=== PATIENT | female | born 1955 | race Caucasian/White ===

== ENCOUNTER 2019-03-29 09:38 | Day surgery (SDC) | payer OTHER ==
[2019-03-29] MEDS ORDERED: PROPOFOL 40 ML (11:22)
[2019-03-29] MEDS ORDERED: LIDOCAINE 100 MG SYRINGE (11:22)
== END 2019-03-29 14:17 | disposition home or self-care (01) ==
LOC: GIL 09:38
DX: Z12.11 Encounter for screening for malignant neoplasm of colon (principal); D12.5 Benign neoplasm of sigmoid colon; D12.4 Benign neoplasm of descending colon; K29.00 Acute gastritis without bleeding; K31.9 Disease of stomach and duodenum, unspecified; E78.5 Hyperlipidemia, unspecified; E11.9 Type 2 diabetes mellitus without complications; E03.9 Hypothyroidism, unspecified; Z79.84 Long term (current) use of oral hypoglycemic drugs
CPT/HCPCS: 43239; 82962; 88305; 88312; 88313